=== PATIENT | female | born 1970 | race African-American/Black ===

== ENCOUNTER 2018-06-20 14:06 | Inpatient (IN) | payer MEDICAID | END 2018-06-21 18:44 | disposition home or self-care (01) | LOC: ER 14:06 → TELE 16:14 → TELE-WESTW 21:58 | DX: R41.82 Altered mental status, unspecified (principal); E66.9 Obesity, unspecified; I10 Essential (primary) hypertension; Z86.73 Personal history of transient ischemic attack (TIA), and cerebral infarction without residual deficits; Z68.30 Body mass index [BMI] 30.0-30.9, adult ==